=== PATIENT | male | born 1955 | race Caucasian/White ===

== ENCOUNTER 2016-06-05 12:43 | Emergency (ER) | payer OTHER ==
[~2016-06-05 12:43] MED LIST: ALBUTHFA INH; FLONASE NS; GLYB5TAB3 PO; IBUP400T22 PO; INSU100C6 SUBCUTA079; METF1000 PO; PRI20 PO; QVAR80 INH; SIMV20TA PO; SUDAFED PO; ZES5 PO; [UNRECOGNIZED DRUG - CODE] PO
[2016-06-05 12:48] VITALS: BP 121/74; PULSE 91; RESP 18; O2SAT 94
--- NOTE | 2016-06-05 12:53 | ED.REPORT ---
HPI-Extremity Problem Upper Date of Service Jun 05, 2016 ED Provider: History of Present Illness: cut left index finger on hose clamp. happened about 30 minutes ago. last tdap was [address] Espinosa is primary care. right hand dominant. 09/10 Nursing Notes Stated Complaint: LEFT HAND POINTER FINGER LACERATION Chief Complaint: Laceration Nursing Notes Reviewed: Yes Allergies: Coded Allergies: Cephalexin Monohydrate (Verified Allergy, Severe, SEVERE VOMITING, 10/05/14) Penicillins (Verified Allergy, Severe, BRADYCARDIA, 10/05/14) guaifenesin (Verified Allergy, Severe, SEVERE VOMITING, 10/05/14) tetracycline (Verified Allergy, Intermediate, RASH, 10/05/14) Scheduled ([Sudafed]) 30 MG PO PRN Albuterol-Expunged Drug, Do Not Renew! (Albuterol-Expunged Drug, Do Not Renew!) 90 Mcg/Puff Hfa.aer.ad 1 PUFF INH Q4H For Wheezing or Shortness of Breath Beclomethasone-Expunged Drug, Do Not Renew! (Juaw-13-Ylpajorl Drug, Do Not Renew !) 80 Mcg Puff 1 PUFF INH BID CHOLECALCIFEROL-Expunged Drug, Do Not Renew! (VITAMIN D3-Expunged Drug, Do Not Renew!) 1,000 Unit Tablet 1,000 UNIT PO AM Fluticasone-Expunged Drug, Do Not Renew! (Flonase-Expunged Drug, Do Not Renew!) 120 Sprays/16 Gm Aero GM NS PRN Glyburide-Expunged Drug, Do Not Renew! (Diabeta-Expunged Drug, Do Not Renew!) 5 Mg Tablet 5 MG PO BID IBUPROFEN-Expunged Drug, Do Not Renew! (IBUPROFEN-Expunged Drug, Do Not Renew!) 400 Mg Tablet 400 MG PO TID INSULIN GLARGINE-Expunged Drug, Do Not Renew! (Lantus-Expunged Drug, Do Not Renew!) 100 Unit/1 Ml Cartridge 23 U [id number] BID Lisinopril-Expunged Drug, Do Not Renew! (Lisinopril-Expunged Drug, Do Not Renew! ) 5 Mg Tablet 5 MG PO DAILY Metformin-Expunged Drug, Do Not Renew! (Metformin-Expunged Drug, Do Not Renew!) 1,000 Mg Tablet 1,000 MG PO BID Omeprazole-Expunged Drug, Do Not Renew! (Omeprazole-Expunged Drug, Do Not Renew! ) 20 Mg Capcr 20 MG PO AM Simvastatin-Expunged Drug, Choose New Med! (Simvastatin-Expunged Drug, Choose New Med!) 20 Mg Tablet 20 MG PO HS General Time Seen by MD: 12:52 Chief Complaint Finger injury left 2 Hx Obtained From: Patient Onset Occurred: Just prior to arrival Symptom Duration: Since onset Caused by: Accidental Immunizations: Tetanus up to date Past Medical History Past Medical History Reports: Asthma, Diabetes mellitus, Hypertension Past Surgical History trigger finger surgery 3 rd one but none on the same finger. toe surgery, hand, Reports: Appendectomy, Inguinal hernia repair, Tonsillectomy Smoking History Former Smoker Social History Alcohol Use: "Social" Drug Use: Denies drug use Other Social History: Occupation lives with spouse, no work or school 06/03/2016 Ambulatory Status Independent Review of Systems Basic Review of Systems Eyes: Vision NL, No discharge : No dysuria, No frequency Psychiatric: Normal thought content Physical Exam Initial Vital Signs Vital Signs (First) Date Time Temp Pulse Resp B/P Pulse Ox O2 Delivery O2 Flow Rate FiO2 06/05/16 12:48 36.3 91 18 121/74 94 Room Air Initial VS: Reviewed, Vital signs normal General/Constitutional: Well-developed, Well-nourished Head / Eyes: Atraumatic, Normocephalic, PERRL ENT: Mucous membranes moist, Conjunctiva normal, No scleral icterus Neck: Supple, Non-tender, Full range of motion Respiratory: Breath sounds normal, Clear to auscultation, No respiratory distress Cardiovascular: Regular rate & rhythm, Heart sounds normal, Intact distal pulses Abdomen / GI: Soft, Non-tender, No guarding, No rebound, No distention Back: No CVA tenderness Lymphatic: No lymphadenopathy Lower Extremities: Vascular intact, Neuro intact, No swelling, No tenderness Skin: Warm, Dry, No cyanosis Neurologic: Alert, Oriented, Nonfocal Psychiatric: Mood/affect normal, Behavior normal, Normal thought content General/Constitutional: Awake, Alert, No acute distress, Well appearing, Well developed, Well hydrated, Well nourished, Cooperative, Not toxic appearing Respiratory / Chest: Atraumatic, Breath sounds NL, Breath sounds = bilat, No respiratory distress Cardiovascular: Heart rate NL, Regular rhythm, Heart sounds NL, No gallop Upper Extremity / MS: Atraumatic, Inspection NL, Full range of motion, No swelling left index finger has flap laceration at PIP Has full range of motion, sensation intact distally. cap refill less than 2 sec. Neurologic: Oriented X3, Speech NL, No motor deficits Procedures Laceration Management Time: 13:00 Consent / Setup / Site Prep: Informed consent provided, Consent from patient , Hand hygiene observed, Stand sterile technique Location of Wound: left index finger Wound Length: 2 cm Local Anesthesia: Lidocaine 1%, 3cc, 27g needle Digital Block: Yes Digit Involved: Index finger left Wound Preparation: Normal saline Debridement: None Irrigation: 200 cc Undermining / Margins: Flaps aligned Repair Skin: ___ O (5), Nylon # Sutures - Skin: 4 Closure Layers: 1 Suture Technique: Simple Post-Procedure / Complications: Antibiotic oint applied, Dressing applied, No complications, Condition improved, Tolerated procedure well, Patient stable Re-Eval/Medical Decision Med Decision/Clinical Course 61 year old male with laceration to his left index finger about 30 minutes ago. Patient with full range of motion, cap refill and sensation intact. wound washed and repaired. Exam is consistent with laceration, no sign of cellulitis or avulsion injury or compartment syndrome. Discharge & Departure Impression: Primary Impression: Finger laceration Encounter type: initial encounter Qualified Code: S61.219A - Laceration without foreign body of unspecified finger without damage to nail, initial encounter Disposition: Home Patient Instructions: Finger Laceration (ED) Additional Instructions: You are up to date on your tdap. The laceration has been repaired with 4 sutures. They need to stay in for 14 days. Return here for suture removal. Keep the wound dry for 24 hours. It is OK to get it briefly wet after that. Use bactiracin and a bandaid to the site daily or every other day. If increasing redness or swelling, return to the ER. Continue with your regular medication. Referrals: Rafael Espinosa MD (PCP) EDSupervising Provider for APC: Wes Lind MD copies to: Rafael Espinosa MD, Sue ARNP Jun 05, 2016 12:53
== END 2016-06-05 13:36 | disposition home or self-care (01) ==
LOC: SED 12:43
DX: S61.211A Laceration without foreign body of left index finger without damage to nail, initial encounter (principal); W26.8XXA Contact with other sharp object(s), not elsewhere classified, initial encounter; Y92.9 Unspecified place or not applicable; Y93.89 Activity, other specified; Y99.8 Other external cause status; J45.909 Unspecified asthma, uncomplicated; E11.9 Type 2 diabetes mellitus without complications; I10 Essential (primary) hypertension; Z87.891 Personal history of nicotine dependence; Z79.84 Long term (current) use of oral hypoglycemic drugs; Z79.4 Long term (current) use of insulin; Z88.1 Allergy status to other antibiotic agents; Z88.0 Allergy status to penicillin; Z88.8 Allergy status to other drugs, medicaments and biological substances